=== PATIENT | male | born 1945 | race Caucasian/White ===

== ENCOUNTER 2019-10-05 11:25 | Emergency (ER) | payer OTHER ==
[~2019-10-05] VITALS: Ht 180.3 cm; Wt 92.5 kg
[~2019-10-05 11:25] MED LIST: ACETAMINOPHEN-1 EAC1 PO; ASPIRIN325; LISINOPRIL40 MG; ROBAXIN 750 MG750 M1 PO; ZOCOR40 MG
[2019-10-05] MEDS ORDERED: KEFLEX500 M2 PO (11:41)
[2019-10-05 12:12] VITALS: BP 139/56
== END 2019-10-05 12:13 | disposition home or self-care (01) ==
LOC: M.ERS 11:25
DX: S56.192A Other injury of flexor muscle, fascia and tendon of left index finger at forearm level, initial encounter (principal); I10 Essential (primary) hypertension; E78.5 Hyperlipidemia, unspecified; W26.0XXA Contact with knife, initial encounter; Y93.89 Activity, other specified; Y92.89 Other specified places as the place of occurrence of the external cause; Y99.8 Other external cause status